=== PATIENT | male | born 1940 | race African-American/Black ===

== ENCOUNTER 2017-02-05 17:43 | Inpatient (IN) | payer MEDICARE, BC ==
[~2017-02-05] VITALS: Ht 188 cm; Wt 153.2 kg
[~2017-02-05 17:43] MED LIST: ASCO250T2 PO; ATOR20TA PO; BACL-19 PO; FAMO20TA7 PO; FURO-92 PO; FURO20TA3 PO; GABA300C10 PO; HUM100VI SQ; LISI5TAB7 PO; METO25TA35 PO; MULT-412 PO; OMEG1CAP23 PO; OMEP-110 PO; OXYC-307 PO; POTA20TA89 PO; PRAM0.125 PO; PREG150C PO; SULF1TAB24 PO; TAMS0.4C2 PO; WARF6TAB PO; WARF6TAB7 PO; ZINC100T PO
[2017-02-05] MEDS ORDERED: INSU100C5 SQ-INSULIN (17:59)
[2017-02-05] MEDS ORDERED: ATOR-2 PO (17:59)
[2017-02-05 19:10] LABS: HEMATOCRIT 42.7 % (39.2-51.8); HEMOGLOBIN 13.7 g/dL (13.7-18.0); WHITE BLOOD COUNT 7.4 x10^3/uL (3.4-10)
[2017-02-05 19:18] LABS: ASPARTATE AMINO TRANSFERASE 13 U/L (15-37); BLOOD UREA NITROGEN 18 mg/dL (7-18)
[2017-02-05 19:24] LABS: IS PT STATUS REG ER OR PRE ER? YES
[2017-02-05] MEDS ORDERED: DEXTROSE 50%, 50ML SYRINGE IVPush PRN (21:30)
[2017-02-05] MEDS ORDERED: ONDANSETRON 2MG/ML, 2ML IVPush PRN (21:30)
[2017-02-05] MEDS ORDERED: POLYETHYLENE GLYCOL 17 GM PACKET PO PRN (21:30)
[2017-02-05] MEDS ORDERED: TRAZODONE 50MG TABLET PO PRN (21:30)
[2017-02-05] MEDS ORDERED: DOCUSATE 100 MG CAPSULE PO PRN (21:30)
[2017-02-05] MEDS ORDERED: GLUCAGON 1 MG IM PRN (21:30)
[2017-02-05] MEDS ORDERED: hydrALAzine 20 MG/ML, 1ML IVPush PRN (21:30)
[2017-02-05] MEDS ORDERED: BISACODYL 10 MG SUPP PR PRN (21:30)
[2017-02-05] MEDS ORDERED: DEXTROSE 4 GM TAB.CHEW PO PRN (21:30)
[2017-02-05] MEDS ORDERED: OXYcodone/APAP 10/325MG TABLET PO PRN (22:00)
[2017-02-05] MEDS: AMPICILLIN/SULBACTAM 3 GM in SODIUM CHLORIDE 0.9% 100 ML IV SCH (22:43)
[2017-02-06] MEDS: AMPICILLIN/SULBACTAM 3 GM in SODIUM CHLORIDE 0.9% 100 ML IV SCH ×3 (03:30→15:30)
[2017-02-06 05:54] LABS: HEMATOCRIT 40.8 % (39.2-51.8)
[2017-02-06 06:06] LABS: BLOOD UREA NITROGEN 17 mg/dL (7-18)
[2017-02-06] MEDS ORDERED: INSULIN ASPART 70/30 100U/ML, PEN SQ-INSULIN SCH (07:00)
[2017-02-06] MEDS: INSULIN ASPART 100 UNITS/ML, PEN SQ-INSULIN SCH ×4 (07:00→21:00)
[2017-02-06] MEDS ORDERED: GADOBUTROL 10 MMOL/10 ML PFS ONE (07:35)
[2017-02-06] MEDS: INSULIN ASPART 70/30 100U/ML, PEN SQ-INSULIN SCH ×4 (08:39→21:00)
[2017-02-06] MEDS: GABAPENTIN 300 MG CAPSULE PO SCH ×3 (10:00→21:27)
[2017-02-06] MEDS: MULTIVITAMIN 1 TABLET PO SCH (10:00)
[2017-02-06] MEDS: PREGABALIN 150 MG CAPSULE PO SCH ×3 (10:00→21:27)
[2017-02-06] MEDS: METOPROLOL TARTRATE 25 MG TABLET PO SCH (10:01)
[2017-02-06] MEDS: FUROSEMIDE 40 MG TABLET PO SCH (10:01)
[2017-02-06] MEDS: POTASSIUM CHLORIDE 20 MEQ TAB.ER.PRT PO SCH (10:01)
[2017-02-06] MEDS: BACLOFEN 10 MG TABLET PO SCH ×3 (10:01→21:27)
[2017-02-06] MEDS: OMEPRAZOLE 20 MG CAPSULE.DR PO SCH (10:01)
[2017-02-06] MEDS: OMEGA-3/FISH OIL CAPSULE PO SCH (10:02)
[2017-02-06] MEDS: PRAMIPEXOLE 0.125MG TABLET PO SCH ×3 (10:02→21:27)
[2017-02-06] MEDS: SODIUM CHLORIDE FLUSH 10ML SYR IVF SCH ×2 (10:03→21:57)
[2017-02-06] MEDS ORDERED: TAMSULOSIN 0.4 MG CAP.ER.24H ONE (10:07)
[2017-02-06] MEDS: TAMSULOSIN 0.4 MG CAP.ER.24H PO SCH (10:09)
[2017-02-06] MEDS ORDERED: INSULIN REGULAR 100 UNITS/ML, 3ML VIAL ONE ×2 (11:28→16:45)
[2017-02-06 17:30] VITALS: BP 109/67
[2017-02-06] MEDS ORDERED: WARFARIN 3 MG TABLET PO-COUM ONE (18:00)
[2017-02-06] MEDS ORDERED: VANCOMYCIN PER PHARMACY MC PRN (19:30)
[2017-02-06 19:58] VITALS: BP 121/69
[2017-02-06] MEDS ORDERED: PHARMACOKINETIC MONITORING MC PRN (20:00)
[2017-02-06] MEDS ORDERED: VANCOMYCIN 2,000 MG in SODIUM CHLORIDE 0.9% 500 ML IV SCH (21:00)
[2017-02-06] MEDS: PIPERACILLIN/TAZO/PMX 3.375GM 50 ML IV SCH (21:10)
[2017-02-06] MEDS: ATORVASTATIN 80 MG TABLET PO SCH (21:27)
[2017-02-07] MEDS: PIPERACILLIN/TAZO/PMX 3.375GM 50 ML IV SCH ×3 (02:00→15:32)
[2017-02-07] MEDS: INSULIN ASPART 100 UNITS/ML, PEN SQ-INSULIN SCH ×4 (07:00→20:23)
[2017-02-07 07:50] VITALS: BP 136/68
[2017-02-07 08:17] LABS: BLOOD UREA NITROGEN 15 mg/dL (7-18)
[2017-02-07 08:22] LABS: HEMATOCRIT 39.7 % (39.2-51.8); HEMOGLOBIN 12.6 g/dL (13.7-18.0); WHITE BLOOD COUNT 6.9 x10^3/uL (3.4-10)
[2017-02-07] MEDS: SODIUM CHLORIDE FLUSH 10ML SYR IVF SCH ×2 (09:35→20:39)
[2017-02-07] MEDS: POTASSIUM CHLORIDE 20 MEQ TAB.ER.PRT PO SCH (09:39)
[2017-02-07] MEDS: TAMSULOSIN 0.4 MG CAP.ER.24H PO SCH (09:39)
[2017-02-07] MEDS: OMEGA-3/FISH OIL CAPSULE PO SCH (09:39)
[2017-02-07] MEDS: PREGABALIN 150 MG CAPSULE PO SCH ×3 (09:42→20:24)
[2017-02-07] MEDS: METOPROLOL TARTRATE 25 MG TABLET PO SCH (09:42)
[2017-02-07] MEDS: GABAPENTIN 300 MG CAPSULE PO SCH ×3 (09:42→20:24)
[2017-02-07] MEDS: PRAMIPEXOLE 0.125MG TABLET PO SCH ×3 (09:42→20:24)
[2017-02-07] MEDS: BACLOFEN 10 MG TABLET PO SCH ×3 (09:42→20:24)
[2017-02-07] MEDS: MULTIVITAMIN 1 TABLET PO SCH (09:43)
[2017-02-07] MEDS: OMEPRAZOLE 20 MG CAPSULE.DR PO SCH (09:43)
[2017-02-07] MEDS: INSULIN ASPART 70/30 100U/ML, PEN SQ-INSULIN SCH ×4 (09:44→20:24)
[2017-02-07] MEDS: FUROSEMIDE 40 MG TABLET PO SCH (09:52)
[2017-02-07 15:39] VITALS: BP 102/62
[2017-02-07] MEDS ORDERED: WARFARIN 2 MG TABLET PO-COUM ONE (18:00)
[2017-02-07 19:20] VITALS: BP 111/67
[2017-02-07] MEDS: CEFTAROLINE 600 MG in SODIUM CHLORIDE 0.9% 100 ML IV SCH (20:22)
[2017-02-07] MEDS: ATORVASTATIN 80 MG TABLET PO SCH (20:24)
[2017-02-08 00:52] VITALS: BP 150/80
[2017-02-08 05:32] LABS: HEMATOCRIT 37.9 % (39.2-51.8); HEMOGLOBIN 12.2 g/dL (13.7-18.0); WHITE BLOOD COUNT 6.3 x10^3/uL (3.4-10)
[2017-02-08 05:41] LABS: ASPARTATE AMINO TRANSFERASE 20 U/L (15-37); BLOOD UREA NITROGEN 14 mg/dL (7-18)
[2017-02-08] MEDS: ACETAMINOPHEN 325 MG TABLET PO PRN (05:41)
[2017-02-08 05:45] LABS: TOTAL IRON BINDING CAPACITY 326 mcg/dL (250-450)
[2017-02-08] MEDS: CEFTAROLINE 600 MG in SODIUM CHLORIDE 0.9% 100 ML IV SCH ×2 (06:22→18:13)
[2017-02-08] MEDS: INSULIN ASPART 100 UNITS/ML, PEN SQ-INSULIN SCH ×4 (07:00→20:35)
[2017-02-08 07:28] VITALS: BP 144/75
[2017-02-08] MEDS: INSULIN ASPART 70/30 100U/ML, PEN SQ-INSULIN SCH ×4 (07:38→20:34)
[2017-02-08] MEDS: SODIUM CHLORIDE FLUSH 10ML SYR IVF SCH ×2 (07:41→20:33)
[2017-02-08] MEDS: MULTIVITAMIN 1 TABLET PO SCH (07:42)
[2017-02-08] MEDS: TAMSULOSIN 0.4 MG CAP.ER.24H PO SCH (07:43)
[2017-02-08] MEDS: OMEPRAZOLE 20 MG CAPSULE.DR PO SCH (07:43)
[2017-02-08] MEDS: GABAPENTIN 300 MG CAPSULE PO SCH ×3 (07:43→20:33)
[2017-02-08] MEDS: BACLOFEN 10 MG TABLET PO SCH ×3 (07:44→20:33)
[2017-02-08] MEDS: FUROSEMIDE 40 MG TABLET PO SCH (07:44)
[2017-02-08] MEDS: PRAMIPEXOLE 0.125MG TABLET PO SCH ×3 (07:45→20:33)
[2017-02-08] MEDS: PREGABALIN 150 MG CAPSULE PO SCH ×3 (07:45→20:33)
[2017-02-08] MEDS: METOPROLOL TARTRATE 25 MG TABLET PO SCH (07:45)
[2017-02-08] MEDS: POTASSIUM CHLORIDE 20 MEQ TAB.ER.PRT PO SCH (07:46)
[2017-02-08] MEDS: OMEGA-3/FISH OIL CAPSULE PO SCH (07:47)
[2017-02-08 12:44] VITALS: BP 147/84
[2017-02-08] MEDS ORDERED: WARFARIN 10 MG TABLET PO-COUM ONE (18:00)
[2017-02-08 19:41] VITALS: BP 170/76
[2017-02-08] MEDS: ATORVASTATIN 80 MG TABLET PO SCH (20:33)
[2017-02-09 03:37] VITALS: BP 157/80
[2017-02-09] MEDS: CEFTAROLINE 600 MG in SODIUM CHLORIDE 0.9% 100 ML IV SCH ×2 (06:05→18:09)
[2017-02-09] MEDS: INSULIN ASPART 100 UNITS/ML, PEN SQ-INSULIN SCH ×4 (07:00→21:20)
[2017-02-09 08:00] VITALS: BP 193/84
[2017-02-09] MEDS: INSULIN ASPART 70/30 100U/ML, PEN SQ-INSULIN SCH ×4 (08:20→21:19)
[2017-02-09] MEDS: POTASSIUM CHLORIDE 20 MEQ TAB.ER.PRT PO SCH (08:22)
[2017-02-09] MEDS: SODIUM CHLORIDE FLUSH 10ML SYR IVF SCH ×2 (08:22→21:21)
[2017-02-09] MEDS: MULTIVITAMIN 1 TABLET PO SCH (08:22)
[2017-02-09] MEDS: OMEGA-3/FISH OIL CAPSULE PO SCH (08:22)
[2017-02-09] MEDS: FUROSEMIDE 40 MG TABLET PO SCH (08:23)
[2017-02-09] MEDS: TAMSULOSIN 0.4 MG CAP.ER.24H PO SCH (08:23)
[2017-02-09] MEDS: OMEPRAZOLE 20 MG CAPSULE.DR PO SCH (08:23)
[2017-02-09] MEDS: METOPROLOL TARTRATE 25 MG TABLET PO SCH (08:24)
[2017-02-09] MEDS: BACLOFEN 10 MG TABLET PO SCH ×3 (08:24→21:19)
[2017-02-09] MEDS: PRAMIPEXOLE 0.125MG TABLET PO SCH ×3 (08:25→21:19)
[2017-02-09] MEDS: PREGABALIN 150 MG CAPSULE PO SCH ×3 (08:25→21:19)
[2017-02-09] MEDS: GABAPENTIN 300 MG CAPSULE PO SCH ×3 (08:25→21:19)
[2017-02-09 16:57] VITALS: BP 178/92
[2017-02-09] MEDS ORDERED: WARFARIN 3 MG TABLET PO-COUM ONE (18:00)
[2017-02-09 19:27] VITALS: BP 179/72
[2017-02-09] MEDS ORDERED: LABETALOL 5MG/ML, 20ML IVPush PRN (19:30)
[2017-02-09] MEDS: ATORVASTATIN 80 MG TABLET PO SCH (21:19)
[2017-02-10 02:45] VITALS: BP 179/80
[2017-02-10 05:05] LABS: HEMATOCRIT 40.6 % (39.2-51.8); HEMOGLOBIN 12.8 g/dL (13.7-18.0); WHITE BLOOD COUNT 6.7 x10^3/uL (3.4-10)
[2017-02-10 05:27] LABS: ASPARTATE AMINO TRANSFERASE 19 U/L (15-37); BLOOD UREA NITROGEN 11 mg/dL (7-18)
[2017-02-10] MEDS: CEFTAROLINE 600 MG in SODIUM CHLORIDE 0.9% 100 ML IV SCH (05:54)
[2017-02-10] MEDS: INSULIN ASPART 100 UNITS/ML, PEN SQ-INSULIN SCH ×4 (07:00→20:36)
[2017-02-10 07:41] VITALS: BP 169/83
[2017-02-10] MEDS: OMEGA-3/FISH OIL CAPSULE PO SCH (07:46)
[2017-02-10] MEDS: SODIUM CHLORIDE FLUSH 10ML SYR IVF SCH ×2 (07:46→20:38)
[2017-02-10] MEDS: MULTIVITAMIN 1 TABLET PO SCH (07:46)
[2017-02-10] MEDS: METOPROLOL TARTRATE 25 MG TABLET PO SCH (07:47)
[2017-02-10] MEDS: BACLOFEN 10 MG TABLET PO SCH ×3 (07:47→20:36)
[2017-02-10] MEDS: GABAPENTIN 300 MG CAPSULE PO SCH ×3 (07:47→20:36)
[2017-02-10] MEDS: OMEPRAZOLE 20 MG CAPSULE.DR PO SCH (07:47)
[2017-02-10] MEDS: PRAMIPEXOLE 0.125MG TABLET PO SCH ×3 (07:47→20:35)
[2017-02-10] MEDS: TAMSULOSIN 0.4 MG CAP.ER.24H PO SCH (07:48)
[2017-02-10] MEDS: FUROSEMIDE 40 MG TABLET PO SCH (07:48)
[2017-02-10] MEDS: PREGABALIN 150 MG CAPSULE PO SCH ×3 (07:48→20:36)
[2017-02-10] MEDS: POTASSIUM CHLORIDE 20 MEQ TAB.ER.PRT PO SCH (07:49)
[2017-02-10] MEDS: INSULIN ASPART 70/30 100U/ML, PEN SQ-INSULIN SCH ×4 (07:49→20:35)
[2017-02-10 13:00] VITALS: BP 124/71
[2017-02-10] MEDS: AMPICILLIN/SULBACTAM 3 GM in SODIUM CHLORIDE 0.9% 100 ML IV SCH ×2 (16:27→22:42)
[2017-02-10] MEDS: METOPROLOL TARTRATE 50 MG TABLET PO SCH (17:48)
[2017-02-10] MEDS ORDERED: WARFARIN 3 MG TABLET PO-COUM ONE (18:00)
[2017-02-10 19:13] VITALS: BP 136/70
[2017-02-10] MEDS: ATORVASTATIN 80 MG TABLET PO SCH (20:36)
[2017-02-10] MEDS: ACETAMINOPHEN 325 MG TABLET PO PRN (23:09)
[2017-02-11 00:49] VITALS: BP 119/68
[2017-02-11] MEDS: AMPICILLIN/SULBACTAM 3 GM in SODIUM CHLORIDE 0.9% 100 ML IV SCH ×4 (04:41→22:52)
[2017-02-11 05:29] LABS: BLOOD UREA NITROGEN 14 mg/dL (7-18)
[2017-02-11] MEDS: METOPROLOL TARTRATE 50 MG TABLET PO SCH ×2 (05:57→17:55)
[2017-02-11] MEDS: ACETAMINOPHEN 325 MG TABLET PO PRN ×2 (06:27→12:07)
[2017-02-11] MEDS: INSULIN ASPART 70/30 100U/ML, PEN SQ-INSULIN SCH ×2 (07:00→11:00)
[2017-02-11] MEDS: INSULIN ASPART 100 UNITS/ML, PEN SQ-INSULIN SCH ×3 (07:00→16:00)
[2017-02-11] MEDS: SODIUM CHLORIDE FLUSH 10ML SYR IVF SCH ×2 (08:18→22:09)
[2017-02-11] MEDS: OMEGA-3/FISH OIL CAPSULE PO SCH (08:22)
[2017-02-11] MEDS: BACLOFEN 10 MG TABLET PO SCH ×3 (08:23→22:08)
[2017-02-11] MEDS: MULTIVITAMIN 1 TABLET PO SCH (08:23)
[2017-02-11] MEDS: PREGABALIN 150 MG CAPSULE PO SCH ×3 (08:23→22:08)
[2017-02-11] MEDS: POTASSIUM CHLORIDE 20 MEQ TAB.ER.PRT PO SCH (08:23)
[2017-02-11] MEDS: PRAMIPEXOLE 0.125MG TABLET PO SCH ×3 (08:23→22:08)
[2017-02-11] MEDS: GABAPENTIN 300 MG CAPSULE PO SCH ×3 (08:23→22:08)
[2017-02-11] MEDS: OMEPRAZOLE 20 MG CAPSULE.DR PO SCH (08:23)
[2017-02-11] MEDS: FUROSEMIDE 40 MG TABLET PO SCH (08:23)
[2017-02-11] MEDS: TAMSULOSIN 0.4 MG CAP.ER.24H PO SCH (08:23)
[2017-02-11 08:26] VITALS: BP 149/68
[2017-02-11] MEDS ORDERED: INSULIN ASPART 70/30 100U/ML, PEN SQ-INSULIN ONE ×2 (08:30→12:00)
[2017-02-11 15:45] VITALS: BP 132/56
[2017-02-11] MEDS ORDERED: POLYETHYLENE GLYCOL 17 GM PACKET PO PRN (16:30)
[2017-02-11] MEDS ORDERED: DEXTROSE 4 GM TAB.CHEW PO PRN (16:30)
[2017-02-11] MEDS ORDERED: GLUCAGON 1 MG IM PRN (16:30)
[2017-02-11] MEDS ORDERED: hydrALAzine 20 MG/ML, 1ML IVPush PRN (16:30)
[2017-02-11] MEDS ORDERED: BISACODYL 10 MG SUPP PR PRN (16:30)
[2017-02-11] MEDS ORDERED: TRAZODONE 50MG TABLET PO PRN (16:30)
[2017-02-11] MEDS ORDERED: DEXTROSE 50%, 50ML SYRINGE IVPush PRN (16:30)
[2017-02-11] MEDS ORDERED: LABETALOL 5MG/ML, 20ML IVPush PRN (16:30)
[2017-02-11] MEDS ORDERED: DOCUSATE 100 MG CAPSULE PO PRN (16:30)
[2017-02-11] MEDS ORDERED: ONDANSETRON 2MG/ML, 2ML IVPush PRN (16:30)
[2017-02-11] MEDS ORDERED: ACETAMINOPHEN 325 MG TABLET PO PRN (16:30)
[2017-02-11] MEDS: FERROUS SULFATE 325 MG TABLET PO SCH (16:58)
[2017-02-11] MEDS: INSULIN DETEMIR 100 UNITS/ML, PEN SQ-INSULIN SCH ×2 (17:33→17:43)
[2017-02-11 17:57] VITALS: BP 133/64
[2017-02-11] MEDS ORDERED: WARFARIN 3 MG TABLET PO-COUM ONE (18:00)
[2017-02-11 19:57] VITALS: BP 134/75
[2017-02-11] MEDS: ATORVASTATIN 80 MG TABLET PO SCH (22:08)
[2017-02-11] MEDS ORDERED: METOCLOPRAMIDE 5 MG/ML, 2ML IVPush ONE (22:30)
[2017-02-11] MEDS ORDERED: DIPHENHYDRAMINE 50 MG/ML, 1ML IVPush ONE (22:30)
[2017-02-12] VITALS (7 sets, daily range): BP systolic 130–179; BP diastolic 69–76
[2017-02-12] MEDS: OXYcodone/APAP 10/325MG TABLET PO PRN ×6 (02:18→23:19)
[2017-02-12] MEDS: AMPICILLIN/SULBACTAM 3 GM in SODIUM CHLORIDE 0.9% 100 ML IV SCH ×4 (04:24→22:59)
[2017-02-12] MEDS: METOPROLOL TARTRATE 50 MG TABLET PO SCH ×2 (06:33→17:36)
[2017-02-12] MEDS: FUROSEMIDE 40 MG TABLET PO SCH (10:22)
[2017-02-12] MEDS: FERROUS SULFATE 325 MG TABLET PO SCH ×2 (10:22→17:35)
[2017-02-12] MEDS: BACLOFEN 10 MG TABLET PO SCH ×3 (10:22→20:04)
[2017-02-12] MEDS: POTASSIUM CHLORIDE 20 MEQ TAB.ER.PRT PO SCH (10:22)
[2017-02-12] MEDS: OMEGA-3/FISH OIL CAPSULE PO SCH (10:23)
[2017-02-12] MEDS: MULTIVITAMIN 1 TABLET PO SCH (10:23)
[2017-02-12] MEDS: PREGABALIN 150 MG CAPSULE PO SCH ×3 (10:23→20:03)
[2017-02-12] MEDS: TAMSULOSIN 0.4 MG CAP.ER.24H PO SCH (10:23)
[2017-02-12] MEDS: GABAPENTIN 300 MG CAPSULE PO SCH ×3 (10:23→20:03)
[2017-02-12] MEDS: PRAMIPEXOLE 0.125MG TABLET PO SCH ×3 (10:23→20:03)
[2017-02-12] MEDS: OMEPRAZOLE 20 MG CAPSULE.DR PO SCH (10:38)
[2017-02-12] MEDS: SODIUM CHLORIDE FLUSH 10ML SYR IVF SCH ×2 (10:38→20:05)
[2017-02-12] MEDS ORDERED: INSULIN ASPART 100 UNITS/ML, PEN SQ-INSULIN SCH (12:30)
[2017-02-12] MEDS ORDERED: INSULIN ASPART 100 UNITS/ML, PEN SQ-INSULIN ONE (17:30)
[2017-02-12] MEDS: INSULIN DETEMIR 100 UNITS/ML, PEN SQ-INSULIN SCH (17:38)
[2017-02-12] MEDS ORDERED: WARFARIN 5 MG TABLET PO-COUM SCH (18:00)
[2017-02-12] MEDS: ATORVASTATIN 80 MG TABLET PO SCH (20:03)
[2017-02-13] MEDS: AMPICILLIN/SULBACTAM 3 GM in SODIUM CHLORIDE 0.9% 100 ML IV SCH ×4 (04:55→22:21)
[2017-02-13 04:56] VITALS: BP 167/73
[2017-02-13] MEDS: METOPROLOL TARTRATE 50 MG TABLET PO SCH ×2 (06:34→18:00)
[2017-02-13 07:24] VITALS: BP 156/76
[2017-02-13] MEDS: OXYcodone/APAP 10/325MG TABLET PO PRN ×2 (08:15→17:59)
[2017-02-13] MEDS: FUROSEMIDE 40 MG TABLET PO SCH (08:15)
[2017-02-13] MEDS: OMEGA-3/FISH OIL CAPSULE PO SCH (08:15)
[2017-02-13] MEDS: PRAMIPEXOLE 0.125MG TABLET PO SCH ×3 (08:16→21:04)
[2017-02-13] MEDS: OMEPRAZOLE 20 MG CAPSULE.DR PO SCH (08:16)
[2017-02-13] MEDS: PREGABALIN 150 MG CAPSULE PO SCH ×3 (08:16→21:05)
[2017-02-13] MEDS: GABAPENTIN 300 MG CAPSULE PO SCH ×3 (08:16→21:04)
[2017-02-13] MEDS: BACLOFEN 10 MG TABLET PO SCH ×3 (08:16→21:04)
[2017-02-13] MEDS: FERROUS SULFATE 325 MG TABLET PO SCH ×2 (08:16→16:20)
[2017-02-13] MEDS: MULTIVITAMIN 1 TABLET PO SCH (08:16)
[2017-02-13] MEDS: POTASSIUM CHLORIDE 20 MEQ TAB.ER.PRT PO SCH (08:17)
[2017-02-13] MEDS: TAMSULOSIN 0.4 MG CAP.ER.24H PO SCH (08:17)
[2017-02-13] MEDS: SODIUM CHLORIDE FLUSH 10ML SYR IVF SCH ×2 (09:00→21:04)
[2017-02-13] MEDS ORDERED: HOLD COUMADIN MC PRN (11:00)
[2017-02-13 14:01] VITALS: BP 159/74
[2017-02-13 20:10] VITALS: BP 154/69
[2017-02-13] MEDS: ATORVASTATIN 80 MG TABLET PO SCH (21:05)
[2017-02-13] MEDS: INSULIN DETEMIR 100 UNITS/ML, PEN SQ-INSULIN SCH (21:15)
[2017-02-14 01:50] VITALS: BP 154/73
[2017-02-14] MEDS: AMPICILLIN/SULBACTAM 3 GM in SODIUM CHLORIDE 0.9% 100 ML IV SCH ×4 (03:49→23:26)
[2017-02-14] MEDS: OXYcodone/APAP 10/325MG TABLET PO PRN ×3 (03:50→16:59)
[2017-02-14] MEDS: METOPROLOL TARTRATE 50 MG TABLET PO SCH ×2 (06:15→16:56)
[2017-02-14 08:00] VITALS: BP 165/70
[2017-02-14] MEDS ORDERED: HOLD COUMADIN MC PRN (08:00)
[2017-02-14] MEDS: OMEGA-3/FISH OIL CAPSULE PO SCH (08:17)
[2017-02-14] MEDS: PREGABALIN 150 MG CAPSULE PO SCH ×3 (08:18→20:02)
[2017-02-14] MEDS: FUROSEMIDE 40 MG TABLET PO SCH (08:18)
[2017-02-14] MEDS: FERROUS SULFATE 325 MG TABLET PO SCH ×2 (08:18→16:56)
[2017-02-14] MEDS: POTASSIUM CHLORIDE 20 MEQ TAB.ER.PRT PO SCH (08:18)
[2017-02-14] MEDS: GABAPENTIN 300 MG CAPSULE PO SCH ×3 (08:18→20:02)
[2017-02-14] MEDS: TAMSULOSIN 0.4 MG CAP.ER.24H PO SCH (08:18)
[2017-02-14] MEDS: PRAMIPEXOLE 0.125MG TABLET PO SCH ×3 (08:18→20:01)
[2017-02-14] MEDS: MULTIVITAMIN 1 TABLET PO SCH (08:19)
[2017-02-14] MEDS: OMEPRAZOLE 20 MG CAPSULE.DR PO SCH (08:19)
[2017-02-14] MEDS: SODIUM CHLORIDE FLUSH 10ML SYR IVF SCH ×2 (08:20→23:26)
[2017-02-14] MEDS: BACLOFEN 10 MG TABLET PO SCH ×3 (08:25→20:02)
[2017-02-14] MEDS: LISINOPRIL 20 MG TABLET PO SCH ×2 (09:39→20:02)
[2017-02-14 13:57] VITALS: BP 184/65
[2017-02-14] MEDS: INSULIN DETEMIR 100 UNITS/ML, PEN SQ-INSULIN SCH (18:12)
[2017-02-14] MEDS: ATORVASTATIN 80 MG TABLET PO SCH (20:02)
[2017-02-14 20:21] VITALS: BP 119/64
[2017-02-15 02:28] VITALS: BP 119/66
[2017-02-15] MEDS: AMPICILLIN/SULBACTAM 3 GM in SODIUM CHLORIDE 0.9% 100 ML IV SCH ×4 (05:18→22:38)
[2017-02-15] MEDS: METOPROLOL TARTRATE 50 MG TABLET PO SCH ×2 (05:18→17:29)
[2017-02-15] MEDS: OXYcodone/APAP 10/325MG TABLET PO PRN (05:28)
[2017-02-15 09:07] VITALS: BP_SYST 157; BP_SYST 95; BP_DIAS 57; BP_DIAS 68
[2017-02-15] MEDS: LISINOPRIL 20 MG TABLET PO SCH ×2 (09:55→21:41)
[2017-02-15] MEDS: PREGABALIN 150 MG CAPSULE PO SCH ×3 (09:55→21:19)
[2017-02-15] MEDS: GABAPENTIN 300 MG CAPSULE PO SCH ×3 (09:55→21:19)
[2017-02-15] MEDS: MULTIVITAMIN 1 TABLET PO SCH (09:55)
[2017-02-15] MEDS: FUROSEMIDE 40 MG TABLET PO SCH (09:55)
[2017-02-15] MEDS: BACLOFEN 10 MG TABLET PO SCH ×3 (09:55→21:18)
[2017-02-15] MEDS: POTASSIUM CHLORIDE 20 MEQ TAB.ER.PRT PO SCH (09:55)
[2017-02-15] MEDS: OMEPRAZOLE 20 MG CAPSULE.DR PO SCH (09:55)
[2017-02-15] MEDS: TAMSULOSIN 0.4 MG CAP.ER.24H PO SCH (09:56)
[2017-02-15] MEDS: SODIUM CHLORIDE FLUSH 10ML SYR IVF SCH ×2 (09:56→21:18)
[2017-02-15] MEDS: OMEGA-3/FISH OIL CAPSULE PO SCH (09:56)
[2017-02-15] MEDS: PRAMIPEXOLE 0.125MG TABLET PO SCH ×3 (09:56→21:18)
[2017-02-15] MEDS: FERROUS SULFATE 325 MG TABLET PO SCH ×2 (10:05→17:00)
[2017-02-15 15:21] VITALS: BP 129/69
[2017-02-15 20:20] VITALS: BP 118/68
[2017-02-15] MEDS: ATORVASTATIN 80 MG TABLET PO SCH (21:18)
[2017-02-15] MEDS: INSULIN DETEMIR 100 UNITS/ML, PEN SQ-INSULIN SCH (21:41)
[2017-02-16] MEDS: OXYcodone/APAP 10/325MG TABLET PO PRN (01:35)
[2017-02-16 02:26] VITALS: BP 108/62
[2017-02-16] MEDS: AMPICILLIN/SULBACTAM 3 GM in SODIUM CHLORIDE 0.9% 100 ML IV SCH ×4 (05:02→21:56)
[2017-02-16] MEDS: METOPROLOL TARTRATE 50 MG TABLET PO SCH ×2 (05:03→18:17)
[2017-02-16 08:00] VITALS: BP 123/61
[2017-02-16] MEDS: OMEPRAZOLE 20 MG CAPSULE.DR PO SCH (10:31)
[2017-02-16] MEDS: OMEGA-3/FISH OIL CAPSULE PO SCH (10:31)
[2017-02-16] MEDS: LISINOPRIL 20 MG TABLET PO SCH ×2 (10:31→20:30)
[2017-02-16] MEDS: MULTIVITAMIN 1 TABLET PO SCH (10:32)
[2017-02-16] MEDS: BACLOFEN 10 MG TABLET PO SCH ×3 (10:32→20:31)
[2017-02-16] MEDS: PREGABALIN 150 MG CAPSULE PO SCH ×3 (10:32→20:31)
[2017-02-16] MEDS: FUROSEMIDE 40 MG TABLET PO SCH (10:32)
[2017-02-16] MEDS: PRAMIPEXOLE 0.125MG TABLET PO SCH ×3 (10:32→20:30)
[2017-02-16] MEDS: FERROUS SULFATE 325 MG TABLET PO SCH ×2 (10:32→16:20)
[2017-02-16] MEDS: GABAPENTIN 300 MG CAPSULE PO SCH ×3 (10:32→20:31)
[2017-02-16] MEDS: SODIUM CHLORIDE FLUSH 10ML SYR IVF SCH ×2 (10:32→20:31)
[2017-02-16] MEDS: POTASSIUM CHLORIDE 20 MEQ TAB.ER.PRT PO SCH (10:32)
[2017-02-16] MEDS: TAMSULOSIN 0.4 MG CAP.ER.24H PO SCH (10:32)
[2017-02-16 14:00] VITALS: BP 133/68
[2017-02-16 19:55] VITALS: BP 178/71
[2017-02-16] MEDS: ATORVASTATIN 80 MG TABLET PO SCH (20:31)
[2017-02-16] MEDS: INSULIN DETEMIR 100 UNITS/ML, PEN SQ-INSULIN SCH (21:00)
[2017-02-17] MEDS: OXYcodone/APAP 10/325MG TABLET PO PRN ×2 (01:10→15:20)
[2017-02-17 01:36] VITALS: BP 147/69
[2017-02-17 02:10] LABS: HEMATOCRIT 38.8 % (39.2-51.8); HEMOGLOBIN 12.7 g/dL (13.7-18.0); WHITE BLOOD COUNT 7.8 x10^3/uL (3.4-10)
[2017-02-17 02:21] LABS: BLOOD UREA NITROGEN 13 mg/dL (7-18)
[2017-02-17] MEDS: AMPICILLIN/SULBACTAM 3 GM in SODIUM CHLORIDE 0.9% 100 ML IV SCH ×4 (05:23→21:52)
[2017-02-17] MEDS: METOPROLOL TARTRATE 50 MG TABLET PO SCH ×2 (05:23→17:39)
[2017-02-17 07:28] VITALS: BP 147/68
[2017-02-17] MEDS: FERROUS SULFATE 325 MG TABLET PO SCH ×2 (08:50→17:38)
[2017-02-17] MEDS: SODIUM CHLORIDE FLUSH 10ML SYR IVF SCH ×2 (08:50→21:29)
[2017-02-17] MEDS: POTASSIUM CHLORIDE 20 MEQ TAB.ER.PRT PO SCH (08:51)
[2017-02-17] MEDS: PRAMIPEXOLE 0.125MG TABLET PO SCH ×3 (08:51→21:27)
[2017-02-17] MEDS: BACLOFEN 10 MG TABLET PO SCH ×3 (08:51→21:27)
[2017-02-17] MEDS: MULTIVITAMIN 1 TABLET PO SCH (08:51)
[2017-02-17] MEDS: FUROSEMIDE 40 MG TABLET PO SCH (08:51)
[2017-02-17] MEDS: GABAPENTIN 300 MG CAPSULE PO SCH ×3 (08:51→21:27)
[2017-02-17] MEDS: TAMSULOSIN 0.4 MG CAP.ER.24H PO SCH (08:51)
[2017-02-17] MEDS: PREGABALIN 150 MG CAPSULE PO SCH ×3 (08:51→21:29)
[2017-02-17] MEDS: OMEGA-3/FISH OIL CAPSULE PO SCH (08:51)
[2017-02-17] MEDS: LISINOPRIL 20 MG TABLET PO SCH ×2 (08:52→21:28)
[2017-02-17] MEDS: OMEPRAZOLE 20 MG CAPSULE.DR PO SCH (08:52)
[2017-02-17 15:46] VITALS: BP 150/68
[2017-02-17 21:15] VITALS: BP 154/72
[2017-02-17] MEDS: ATORVASTATIN 80 MG TABLET PO SCH (21:27)
[2017-02-17] MEDS: INSULIN DETEMIR 100 UNITS/ML, PEN SQ-INSULIN SCH (21:52)
[2017-02-18 02:40] VITALS: BP 135/68
[2017-02-18] MEDS: AMPICILLIN/SULBACTAM 3 GM in SODIUM CHLORIDE 0.9% 100 ML IV SCH ×4 (05:29→22:40)
[2017-02-18] MEDS: METOPROLOL TARTRATE 50 MG TABLET PO SCH ×2 (05:30→17:33)
[2017-02-18 06:53] VITALS: BP 153/73
[2017-02-18] MEDS: FERROUS SULFATE 325 MG TABLET PO SCH ×2 (09:44→17:33)
[2017-02-18] MEDS: SODIUM CHLORIDE FLUSH 10ML SYR IVF SCH ×2 (09:44→21:00)
[2017-02-18] MEDS: TAMSULOSIN 0.4 MG CAP.ER.24H PO SCH (09:45)
[2017-02-18] MEDS: PREGABALIN 150 MG CAPSULE PO SCH ×3 (09:45→21:24)
[2017-02-18] MEDS: MULTIVITAMIN 1 TABLET PO SCH (09:45)
[2017-02-18] MEDS: GABAPENTIN 300 MG CAPSULE PO SCH ×3 (09:45→21:25)
[2017-02-18] MEDS: FUROSEMIDE 40 MG TABLET PO SCH (09:45)
[2017-02-18] MEDS: POTASSIUM CHLORIDE 20 MEQ TAB.ER.PRT PO SCH (09:45)
[2017-02-18] MEDS: BACLOFEN 10 MG TABLET PO SCH ×3 (09:45→21:25)
[2017-02-18] MEDS: OMEPRAZOLE 20 MG CAPSULE.DR PO SCH (09:45)
[2017-02-18] MEDS: PRAMIPEXOLE 0.125MG TABLET PO SCH ×3 (09:45→21:25)
[2017-02-18] MEDS: OMEGA-3/FISH OIL CAPSULE PO SCH (09:45)
[2017-02-18] MEDS: LISINOPRIL 20 MG TABLET PO SCH ×2 (09:46→21:25)
[2017-02-18 15:36] VITALS: BP 153/74
[2017-02-18 18:40] VITALS: BP 145/74
[2017-02-18] MEDS: ATORVASTATIN 80 MG TABLET PO SCH (21:24)
[2017-02-18] MEDS: INSULIN DETEMIR 100 UNITS/ML, PEN SQ-INSULIN SCH (21:34)
[2017-02-19 01:34] VITALS: BP 156/76
[2017-02-19] MEDS: AMPICILLIN/SULBACTAM 3 GM in SODIUM CHLORIDE 0.9% 100 ML IV SCH ×4 (05:00→21:46)
[2017-02-19] MEDS: METOPROLOL TARTRATE 50 MG TABLET PO SCH ×2 (05:00→18:16)
[2017-02-19 05:46] LABS: ASPARTATE AMINO TRANSFERASE 16 U/L (15-37); BLOOD UREA NITROGEN 12 mg/dL (7-18)
[2017-02-19 06:04] LABS: WHITE BLOOD COUNT 7.4 x10^3/uL (3.4-10)
[2017-02-19 07:51] VITALS: BP 112/71
[2017-02-19 08:09] VITALS: BP 148/71
[2017-02-19] MEDS: FERROUS SULFATE 325 MG TABLET PO SCH ×2 (09:30→18:16)
[2017-02-19] MEDS: SODIUM CHLORIDE FLUSH 10ML SYR IVF SCH ×2 (09:30→20:44)
[2017-02-19] MEDS: TAMSULOSIN 0.4 MG CAP.ER.24H PO SCH (09:31)
[2017-02-19] MEDS: BACLOFEN 10 MG TABLET PO SCH ×3 (09:31→20:45)
[2017-02-19] MEDS: PRAMIPEXOLE 0.125MG TABLET PO SCH ×3 (09:31→20:44)
[2017-02-19] MEDS: LISINOPRIL 20 MG TABLET PO SCH ×2 (09:31→20:44)
[2017-02-19] MEDS: GABAPENTIN 300 MG CAPSULE PO SCH ×3 (09:31→20:45)
[2017-02-19] MEDS: POTASSIUM CHLORIDE 20 MEQ TAB.ER.PRT PO SCH (09:31)
[2017-02-19] MEDS: MULTIVITAMIN 1 TABLET PO SCH (09:31)
[2017-02-19] MEDS: FUROSEMIDE 40 MG TABLET PO SCH (09:31)
[2017-02-19] MEDS: OMEGA-3/FISH OIL CAPSULE PO SCH (09:31)
[2017-02-19] MEDS: PREGABALIN 150 MG CAPSULE PO SCH ×3 (09:31→20:45)
[2017-02-19] MEDS: OMEPRAZOLE 20 MG CAPSULE.DR PO SCH (10:36)
[2017-02-19] MEDS: OXYcodone/APAP 10/325MG TABLET PO PRN (13:18)
[2017-02-19 15:32] VITALS: BP 159/77
[2017-02-19] MEDS: ATORVASTATIN 80 MG TABLET PO SCH (20:45)
[2017-02-19] MEDS: INSULIN DETEMIR 100 UNITS/ML, PEN SQ-INSULIN SCH (20:53)
[2017-02-19 20:54] VITALS: BP 116/70
[2017-02-20] MEDS: AMPICILLIN/SULBACTAM 3 GM in SODIUM CHLORIDE 0.9% 100 ML IV SCH ×4 (03:46→22:47)
[2017-02-20 04:13] VITALS: BP 122/76
[2017-02-20] MEDS: METOPROLOL TARTRATE 50 MG TABLET PO SCH ×2 (05:43→17:24)
[2017-02-20 07:35] VITALS: BP 138/69
[2017-02-20] MEDS: SODIUM CHLORIDE FLUSH 10ML SYR IVF SCH ×2 (08:15→21:09)
[2017-02-20] MEDS: FERROUS SULFATE 325 MG TABLET PO SCH ×2 (08:15→17:24)
[2017-02-20] MEDS: BACLOFEN 10 MG TABLET PO SCH ×3 (08:16→21:10)
[2017-02-20] MEDS: POTASSIUM CHLORIDE 20 MEQ TAB.ER.PRT PO SCH (08:16)
[2017-02-20] MEDS: TAMSULOSIN 0.4 MG CAP.ER.24H PO SCH (08:16)
[2017-02-20] MEDS: OMEGA-3/FISH OIL CAPSULE PO SCH (08:16)
[2017-02-20] MEDS: FUROSEMIDE 40 MG TABLET PO SCH (08:16)
[2017-02-20] MEDS: PRAMIPEXOLE 0.125MG TABLET PO SCH ×3 (08:17→21:10)
[2017-02-20] MEDS: MULTIVITAMIN 1 TABLET PO SCH (08:17)
[2017-02-20] MEDS: PREGABALIN 150 MG CAPSULE PO SCH ×3 (08:17→21:10)
[2017-02-20] MEDS: GABAPENTIN 300 MG CAPSULE PO SCH ×3 (08:17→21:10)
[2017-02-20] MEDS: OMEPRAZOLE 20 MG CAPSULE.DR PO SCH (08:17)
[2017-02-20] MEDS: LISINOPRIL 20 MG TABLET PO SCH ×2 (08:18→21:11)
[2017-02-20] MEDS: OXYcodone/APAP 10/325MG TABLET PO PRN ×2 (08:30→21:44)
[2017-02-20] MEDS: ENOXAPARIN 150 MG/ML SQ SCH (12:30)
[2017-02-20 13:02] VITALS: BP 135/70
[2017-02-20 16:19] VITALS: BP 131/74
[2017-02-20 20:59] VITALS: BP 139/70
[2017-02-20] MEDS: INSULIN DETEMIR 100 UNITS/ML, PEN SQ-INSULIN SCH (21:10)
[2017-02-20] MEDS: ATORVASTATIN 80 MG TABLET PO SCH (21:10)
[2017-02-21] MEDS: ENOXAPARIN 150 MG/ML SQ SCH ×2 (00:21→12:28)
[2017-02-21 02:34] VITALS: BP 116/66
[2017-02-21] MEDS: METOPROLOL TARTRATE 50 MG TABLET PO SCH ×2 (05:09→17:53)
[2017-02-21] MEDS: AMPICILLIN/SULBACTAM 3 GM in SODIUM CHLORIDE 0.9% 100 ML IV SCH ×4 (05:09→23:30)
[2017-02-21] MEDS: OXYcodone/APAP 10/325MG TABLET PO PRN (05:22)
[2017-02-21 07:27] VITALS: BP 136/74
[2017-02-21] MEDS: GABAPENTIN 300 MG CAPSULE PO SCH ×3 (09:28→21:57)
[2017-02-21] MEDS: OMEPRAZOLE 20 MG CAPSULE.DR PO SCH (09:28)
[2017-02-21] MEDS: PREGABALIN 150 MG CAPSULE PO SCH ×3 (09:29→21:57)
[2017-02-21] MEDS: TAMSULOSIN 0.4 MG CAP.ER.24H PO SCH (09:29)
[2017-02-21] MEDS: BACLOFEN 10 MG TABLET PO SCH ×3 (09:29→21:58)
[2017-02-21] MEDS: PRAMIPEXOLE 0.125MG TABLET PO SCH ×3 (09:30→21:57)
[2017-02-21] MEDS: OMEGA-3/FISH OIL CAPSULE PO SCH (09:30)
[2017-02-21] MEDS: SODIUM CHLORIDE FLUSH 10ML SYR IVF SCH ×2 (09:30→21:00)
[2017-02-21] MEDS: FUROSEMIDE 40 MG TABLET PO SCH (09:30)
[2017-02-21] MEDS: MULTIVITAMIN 1 TABLET PO SCH (09:31)
[2017-02-21] MEDS: FERROUS SULFATE 325 MG TABLET PO SCH ×2 (09:31→16:16)
[2017-02-21] MEDS: POTASSIUM CHLORIDE 20 MEQ TAB.ER.PRT PO SCH (09:31)
[2017-02-21] MEDS: LISINOPRIL 20 MG TABLET PO SCH ×2 (09:32→21:57)
[2017-02-21 14:47] VITALS: BP 137/69
[2017-02-21 19:44] VITALS: BP 138/73
[2017-02-21] MEDS: ATORVASTATIN 80 MG TABLET PO SCH (21:57)
[2017-02-21] MEDS: INSULIN DETEMIR 100 UNITS/ML, PEN SQ-INSULIN SCH (21:58)
[2017-02-22 02:00] VITALS: BP 146/68
[2017-02-22] MEDS: METOPROLOL TARTRATE 50 MG TABLET PO SCH ×2 (05:13→17:35)
[2017-02-22] MEDS: AMPICILLIN/SULBACTAM 3 GM in SODIUM CHLORIDE 0.9% 100 ML IV SCH ×4 (05:14→23:40)
[2017-02-22 05:34] LABS: HEMATOCRIT 39.2 % (39.2-51.8); HEMOGLOBIN 12.7 g/dL (13.7-18.0); WHITE BLOOD COUNT 7.3 x10^3/uL (3.4-10)
[2017-02-22 05:39] LABS: BLOOD UREA NITROGEN 10 mg/dL (7-18)
[2017-02-22 06:38] VITALS: BP 158/72
[2017-02-22] MEDS ORDERED: FENTANYL PF 100 MCG/2ML ONE (07:05)
[2017-02-22] MEDS ORDERED: ONDANSETRON 2MG/ML, 2ML ONE (07:46)
[2017-02-22] MEDS ORDERED: METOCLOPRAMIDE 5 MG/ML, 2ML ONE (07:46)
[2017-02-22] MEDS ORDERED: SUCCINYLCHOLINE 20 MG/ML, 10ML ONE (07:46)
[2017-02-22] MEDS ORDERED: PROPOFOL 10 MG/ML, 20ML ONE (07:46)
[2017-02-22] MEDS ORDERED: ROCURONIUM 10 MG/ML ONE (07:46)
[2017-02-22] MEDS: FERROUS SULFATE 325 MG TABLET PO SCH ×2 (08:00→16:23)
[2017-02-22] MEDS ORDERED: hydrALAzine 20 MG/ML, 1ML IV PRN (08:30)
[2017-02-22] MEDS ORDERED: FENTANYL PF 100 MCG/2ML IV PRN (08:30)
[2017-02-22] MEDS ORDERED: OXYcodone 5 MG/5 ML ORAL.SOL UDC PO PRN (08:30)
[2017-02-22] MEDS ORDERED: PROMETHAZINE 25 MG/ML, 1ML IV PRN (08:30)
[2017-02-22] MEDS ORDERED: ONDANSETRON 2MG/ML, 2ML IVPush PRN (08:30)
[2017-02-22] MEDS ORDERED: morphine SULFATE 10 MG/ML, 1ML IV PRN (08:30)
[2017-02-22] MEDS ORDERED: LABETALOL 5MG/ML, 20ML ONE (08:42)
[2017-02-22] MEDS: LABETALOL 5MG/ML, 20ML IV PRN ×3 (08:44→09:01)
[2017-02-22] MEDS: OMEGA-3/FISH OIL CAPSULE PO SCH (09:00)
[2017-02-22] MEDS: GABAPENTIN 300 MG CAPSULE PO SCH ×3 (09:00→21:52)
[2017-02-22] MEDS: LISINOPRIL 20 MG TABLET PO SCH ×2 (09:00→21:00)
[2017-02-22] MEDS: PREGABALIN 150 MG CAPSULE PO SCH ×3 (09:00→21:52)
[2017-02-22] MEDS: SODIUM CHLORIDE FLUSH 10ML SYR IVF SCH ×2 (09:00→21:00)
[2017-02-22] MEDS: BACLOFEN 10 MG TABLET PO SCH ×3 (09:00→21:52)
[2017-02-22] MEDS: PRAMIPEXOLE 0.125MG TABLET PO SCH ×3 (09:00→21:52)
[2017-02-22] MEDS ORDERED: hydrALAzine 20 MG/ML, 1ML ONE (09:07)
[2017-02-22] MEDS: FUROSEMIDE 40 MG TABLET PO SCH (12:36)
[2017-02-22] MEDS: TAMSULOSIN 0.4 MG CAP.ER.24H PO SCH (12:36)
[2017-02-22] MEDS: MULTIVITAMIN 1 TABLET PO SCH (12:37)
[2017-02-22] MEDS: POTASSIUM CHLORIDE 20 MEQ TAB.ER.PRT PO SCH (12:37)
[2017-02-22] MEDS: OMEPRAZOLE 20 MG CAPSULE.DR PO SCH (12:38)
[2017-02-22 15:50] VITALS: BP 152/73
[2017-02-22] MEDS: WARFARIN 2 MG TABLET PO-COUM SCH (17:36)
[2017-02-22] MEDS: OXYcodone/APAP 10/325MG TABLET PO PRN ×2 (17:44→23:40)
[2017-02-22 20:36] VITALS: BP 132/67
[2017-02-22] MEDS: ATORVASTATIN 80 MG TABLET PO SCH (21:52)
[2017-02-22] MEDS: INSULIN DETEMIR 100 UNITS/ML, PEN SQ-INSULIN SCH (22:05)
[2017-02-22] MEDS: ENOXAPARIN 150 MG/ML SQ SCH (23:40)
[2017-02-23 03:21] VITALS: BP 132/67
[2017-02-23] MEDS: METOPROLOL TARTRATE 50 MG TABLET PO SCH ×2 (05:48→17:24)
[2017-02-23] MEDS: AMPICILLIN/SULBACTAM 3 GM in SODIUM CHLORIDE 0.9% 100 ML IV SCH ×3 (05:48→17:34)
[2017-02-23 06:21] LABS: HEMATOCRIT 37.3 % (39.2-51.8); WHITE BLOOD COUNT 7.4 x10^3/uL (3.4-10)
[2017-02-23 06:32] LABS: BLOOD UREA NITROGEN 14 mg/dL (7-18)
[2017-02-23 07:13] VITALS: BP 109/63
[2017-02-23] MEDS: POTASSIUM CHLORIDE 20 MEQ TAB.ER.PRT PO SCH (10:02)
[2017-02-23] MEDS: TAMSULOSIN 0.4 MG CAP.ER.24H PO SCH (10:02)
[2017-02-23] MEDS: FERROUS SULFATE 325 MG TABLET PO SCH ×2 (10:02→17:20)
[2017-02-23] MEDS: PRAMIPEXOLE 0.125MG TABLET PO SCH ×3 (10:03→20:46)
[2017-02-23] MEDS: PREGABALIN 150 MG CAPSULE PO SCH ×3 (10:03→20:47)
[2017-02-23] MEDS: FUROSEMIDE 40 MG TABLET PO SCH (10:03)
[2017-02-23] MEDS: OMEPRAZOLE 20 MG CAPSULE.DR PO SCH (10:03)
[2017-02-23] MEDS: GABAPENTIN 300 MG CAPSULE PO SCH ×3 (10:03→20:47)
[2017-02-23] MEDS: MULTIVITAMIN 1 TABLET PO SCH (10:03)
[2017-02-23] MEDS: LISINOPRIL 20 MG TABLET PO SCH ×2 (10:03→20:47)
[2017-02-23] MEDS: BACLOFEN 10 MG TABLET PO SCH ×3 (10:03→20:47)
[2017-02-23] MEDS: SODIUM CHLORIDE FLUSH 10ML SYR IVF SCH ×2 (10:04→20:46)
[2017-02-23] MEDS: OMEGA-3/FISH OIL CAPSULE PO SCH (10:04)
[2017-02-23 12:56] VITALS: BP 131/70
[2017-02-23] MEDS: ENOXAPARIN 150 MG/ML SQ SCH (14:09)
[2017-02-23] MEDS: WARFARIN 2 MG TABLET PO-COUM SCH (17:24)
[2017-02-23 20:40] VITALS: BP 145/72
[2017-02-23] MEDS: ATORVASTATIN 80 MG TABLET PO SCH (20:47)
[2017-02-23] MEDS: OXYcodone/APAP 10/325MG TABLET PO PRN (21:07)
[2017-02-23] MEDS: INSULIN DETEMIR 100 UNITS/ML, PEN SQ-INSULIN SCH (21:08)
[2017-02-24] MEDS: AMPICILLIN/SULBACTAM 3 GM in SODIUM CHLORIDE 0.9% 100 ML IV SCH ×5 (00:25→22:46)
[2017-02-24] MEDS: ENOXAPARIN 150 MG/ML SQ SCH ×2 (01:14→11:38)
[2017-02-24 02:36] VITALS: BP 148/73
[2017-02-24] MEDS: OXYcodone/APAP 10/325MG TABLET PO PRN ×4 (04:31→22:40)
[2017-02-24] MEDS: METOPROLOL TARTRATE 50 MG TABLET PO SCH ×2 (05:57→16:58)
[2017-02-24 06:44] VITALS: BP 187/76
[2017-02-24] MEDS: FUROSEMIDE 40 MG TABLET PO SCH (07:43)
[2017-02-24] MEDS: GABAPENTIN 300 MG CAPSULE PO SCH ×3 (07:43→21:37)
[2017-02-24] MEDS: MULTIVITAMIN 1 TABLET PO SCH (07:44)
[2017-02-24] MEDS: OMEPRAZOLE 20 MG CAPSULE.DR PO SCH (07:44)
[2017-02-24] MEDS: PRAMIPEXOLE 0.125MG TABLET PO SCH ×3 (07:44→22:07)
[2017-02-24] MEDS: BACLOFEN 10 MG TABLET PO SCH ×3 (07:44→21:37)
[2017-02-24] MEDS: OMEGA-3/FISH OIL CAPSULE PO SCH (07:44)
[2017-02-24] MEDS: LISINOPRIL 20 MG TABLET PO SCH ×2 (07:45→21:38)
[2017-02-24] MEDS: POTASSIUM CHLORIDE 20 MEQ TAB.ER.PRT PO SCH (07:46)
[2017-02-24] MEDS: TAMSULOSIN 0.4 MG CAP.ER.24H PO SCH (07:46)
[2017-02-24] MEDS: PREGABALIN 150 MG CAPSULE PO SCH ×3 (07:46→21:37)
[2017-02-24] MEDS: FERROUS SULFATE 325 MG TABLET PO SCH ×2 (07:47→16:56)
[2017-02-24] MEDS: SODIUM CHLORIDE FLUSH 10ML SYR IVF SCH ×2 (09:16→21:37)
[2017-02-24 13:37] VITALS: BP 161/73
[2017-02-24] MEDS ORDERED: SILVER NITRATE STICK TP ONE (18:00)
[2017-02-24 20:09] VITALS: BP 134/69
[2017-02-24] MEDS: ATORVASTATIN 80 MG TABLET PO SCH (21:38)
[2017-02-24] MEDS: INSULIN DETEMIR 100 UNITS/ML, PEN SQ-INSULIN SCH (22:07)
[2017-02-25 03:35] VITALS: BP 139/73
[2017-02-25] MEDS: OXYcodone/APAP 10/325MG TABLET PO PRN ×2 (04:13→21:29)
[2017-02-25] MEDS: AMPICILLIN/SULBACTAM 3 GM in SODIUM CHLORIDE 0.9% 100 ML IV SCH ×3 (05:18→16:55)
[2017-02-25] MEDS: METOPROLOL TARTRATE 50 MG TABLET PO SCH ×2 (05:19→16:54)
[2017-02-25 05:40] LABS: HEMATOCRIT 34.9 % (39.2-51.8); HEMOGLOBIN 11.2 g/dL (13.7-18.0)
[2017-02-25 08:40] VITALS: BP 169/77
[2017-02-25] MEDS: LISINOPRIL 20 MG TABLET PO SCH ×2 (09:00→21:07)
[2017-02-25] MEDS: TAMSULOSIN 0.4 MG CAP.ER.24H PO SCH (10:12)
[2017-02-25] MEDS: GABAPENTIN 300 MG CAPSULE PO SCH ×3 (10:13→21:07)
[2017-02-25] MEDS: PREGABALIN 150 MG CAPSULE PO SCH ×3 (10:13→21:07)
[2017-02-25] MEDS: POTASSIUM CHLORIDE 20 MEQ TAB.ER.PRT PO SCH (10:13)
[2017-02-25] MEDS: FERROUS SULFATE 325 MG TABLET PO SCH ×2 (10:13→16:54)
[2017-02-25] MEDS: MULTIVITAMIN 1 TABLET PO SCH (10:13)
[2017-02-25] MEDS: BACLOFEN 10 MG TABLET PO SCH ×3 (10:13→21:08)
[2017-02-25] MEDS: PRAMIPEXOLE 0.125MG TABLET PO SCH ×3 (10:13→21:07)
[2017-02-25] MEDS: FUROSEMIDE 40 MG TABLET PO SCH (10:13)
[2017-02-25] MEDS: SODIUM CHLORIDE FLUSH 10ML SYR IVF SCH ×2 (10:14→21:07)
[2017-02-25] MEDS: OMEGA-3/FISH OIL CAPSULE PO SCH (10:14)
[2017-02-25] MEDS: OMEPRAZOLE 20 MG CAPSULE.DR PO SCH (10:14)
[2017-02-25] MEDS ORDERED: FLUCONAZOLE 200 MG TABLET PO SCH (10:30)
[2017-02-25] MEDS ORDERED: DAPTOMYCIN 900 MG in SODIUM CHLORIDE 0.9% 100 ML IVPB SCH (10:30)
[2017-02-25 15:31] VITALS: BP 170/72
[2017-02-25] MEDS: ENOXAPARIN 150 MG/ML SQ SCH (16:54)
[2017-02-25 18:35] VITALS: BP 153/70
[2017-02-25] MEDS ORDERED: ATORVASTATIN 80 MG TABLET PO SCH (21:00)
[2017-02-25] MEDS: INSULIN DETEMIR 100 UNITS/ML, PEN SQ-INSULIN SCH (21:00)
[2017-02-26] MEDS: AMPICILLIN/SULBACTAM 3 GM in SODIUM CHLORIDE 0.9% 100 ML IV SCH ×3 (00:02→11:24)
[2017-02-26 01:39] VITALS: BP 158/73
[2017-02-26] MEDS: METOPROLOL TARTRATE 50 MG TABLET PO SCH (05:05)
[2017-02-26] MEDS: ENOXAPARIN 150 MG/ML SQ SCH (05:05)
[2017-02-26 05:50] LABS: HEMOGLOBIN 11.5 g/dL (13.7-18.0)
[2017-02-26 06:15] LABS: ASPARTATE AMINO TRANSFERASE 29 U/L (15-37); BLOOD UREA NITROGEN 12 mg/dL (7-18)
[2017-02-26 08:23] VITALS: BP 163/75
[2017-02-26] MEDS: FERROUS SULFATE 325 MG TABLET PO SCH (08:24)
[2017-02-26] MEDS: TAMSULOSIN 0.4 MG CAP.ER.24H PO SCH (08:25)
[2017-02-26] MEDS: POTASSIUM CHLORIDE 20 MEQ TAB.ER.PRT PO SCH (08:25)
[2017-02-26] MEDS: OMEGA-3/FISH OIL CAPSULE PO SCH (08:25)
[2017-02-26] MEDS: SODIUM CHLORIDE FLUSH 10ML SYR IVF SCH (08:25)
[2017-02-26] MEDS: MULTIVITAMIN 1 TABLET PO SCH (08:26)
[2017-02-26] MEDS: BACLOFEN 10 MG TABLET PO SCH (08:26)
[2017-02-26] MEDS: FUROSEMIDE 40 MG TABLET PO SCH (08:26)
[2017-02-26] MEDS: GABAPENTIN 300 MG CAPSULE PO SCH (08:26)
[2017-02-26] MEDS: OMEPRAZOLE 20 MG CAPSULE.DR PO SCH (08:26)
[2017-02-26] MEDS: PREGABALIN 150 MG CAPSULE PO SCH (08:26)
[2017-02-26] MEDS: LISINOPRIL 20 MG TABLET PO SCH (08:26)
[2017-02-26] MEDS: PRAMIPEXOLE 0.125MG TABLET PO SCH (08:26)
[2017-02-26] MEDS ORDERED: POTASSIUM CHLORIDE 20 MEQ TAB.ER.PRT PO ONE (10:30)
[2017-02-26] MEDS ORDERED: RIVA20TA PO (11:15)
[2017-02-26] MEDS ORDERED: FERR-36 PO (11:15)
[2017-02-26] MEDS ORDERED: METO50TA82 PO (11:15)
[2017-02-26] MEDS ORDERED: ACET325T14 PO (11:15)
[2017-02-26] MEDS ORDERED: HYDR-3343 PO (11:15)
[2017-02-26] MEDS ORDERED: AMPI3VIA IV (11:15)
[2017-02-26] MEDS ORDERED: DOCU-131 PO (11:15)
[2017-02-26] MEDS ORDERED: INSU100I28 SQ-INSULIN (11:15)
[2017-02-26] MEDS ORDERED: POLY17PO5 PO (11:15)
[2017-02-26] MEDS ORDERED: FURO40TA6 PO (11:15)
[2017-02-26] MEDS ORDERED: RIVA15TA PO (11:15)
[2017-02-26] MEDS ORDERED: ATOR-2 PO (11:15)
[2017-02-26] MEDS ORDERED: OXYC1TAB9 PO (11:15)
[2017-02-26] MEDS ORDERED: LISI-170 PO (11:15)
[2017-02-26] MEDS ORDERED: FURO20TA3 PO (11:15)
[2017-02-26] MEDS ORDERED: FLUCONAZOLE 200 MG TABLET PO SCH (12:30)
[2017-02-26] MEDS ORDERED: DAPTOMYCIN 900 MG in SODIUM CHLORIDE 0.9% 100 ML IVPB SCH (13:00)
[2017-02-26 14:23] VITALS: BP 164/71
== END 2017-02-26 16:29 | DRG 622 ==
LOC: ED 20:33 → SUATTDRO 20:41 → EDIP 20:45 → 3NE 02-06 16:57
PROVIDERS: ATTEND Hospitalist
PROC: 02HV33Z Insertion of Infusion Device into Superior Vena Cava, Percutaneous Approach (ICD-10-PCS; 2017-02-16)
PROC: B548ZZA Ultrasonography of Superior Vena Cava, Guidance (ICD-10-PCS; 2017-02-16)
PROC: 0JBR0ZZ Excision of Left Foot Subcutaneous Tissue and Fascia, Open Approach (ICD-10-PCS; principal; 2017-02-22 07:30)
DX: E11.621 Type 2 diabetes mellitus with foot ulcer (principal); E43 Unspecified severe protein-calorie malnutrition; M86.8X7 Other osteomyelitis, ankle and foot; N17.0 Acute kidney failure with tubular necrosis; D68.69 Other thrombophilia; E11.22 Type 2 diabetes mellitus with diabetic chronic kidney disease; R53.2 Functional quadriplegia; E11.40 Type 2 diabetes mellitus with diabetic neuropathy, unspecified; I50.32 Chronic diastolic (congestive) heart failure; I13.0 Hypertensive heart and chronic kidney disease with heart failure and stage 1 through stage 4 chronic kidney disease, or unspecified chronic kidney disease; L03.115 Cellulitis of right lower limb; L97.429 Non-pressure chronic ulcer of left heel and midfoot with unspecified severity; L03.116 Cellulitis of left lower limb; L03.316 Cellulitis of umbilicus; Z68.41 Body mass index [BMI] 40.0-44.9, adult; B95.61 Methicillin susceptible Staphylococcus aureus infection as the cause of diseases classified elsewhere; B95.2 Enterococcus as the cause of diseases classified elsewhere; B95.5 Unspecified streptococcus as the cause of diseases classified elsewhere; B96.89 Other specified bacterial agents as the cause of diseases classified elsewhere; E11.69 Type 2 diabetes mellitus with other specified complication; L97.529 Non-pressure chronic ulcer of other part of left foot with unspecified severity; M54.5 Low back pain; D50.9 Iron deficiency anemia, unspecified; D75.89 Other specified diseases of blood and blood-forming organs; E11.65 Type 2 diabetes mellitus with hyperglycemia; E66.01 Morbid (severe) obesity due to excess calories; E78.00 Pure hypercholesterolemia, unspecified; E78.5 Hyperlipidemia, unspecified; G89.29 Other chronic pain; I48.0 Paroxysmal atrial fibrillation; M19.90 Unspecified osteoarthritis, unspecified site; N18.9 Chronic kidney disease, unspecified; N40.0 Benign prostatic hyperplasia without lower urinary tract symptoms; Z79.01 Long term (current) use of anticoagulants; Z79.4 Long term (current) use of insulin; Z91.19 Patient's noncompliance with other medical treatment and regimen; Z99.3 Dependence on wheelchair; Z79.899 Other long term (current) drug therapy
CPT/HCPCS: 36415; 36569; 71010; 76937; 77001; 80048; 80053; 81003; 82040; 82550; 82962; 83036; 83540; 83550; 83735; 83880; 84100; 84484; 85014; 85018; 85025; 85610; 85651; 86140; 87015; 87040; 87070; 87075; 87077; 87102; 87106; 87116; 87176; 87186; 87205; 87206; 93005; 93922; 93926; 93970; 99285; A9585; J0295; J0712; J0878; J1650; J1815; J2405; J2543; J2704; J3010; J3370; C1751; J0330; J0360; J1200; J2765; J7040

== ENCOUNTER 2019-01-17 15:40 | Outpatient (CLI) | payer MEDICARE, BC | END 2019-01-17 23:59 | disposition home or self-care (01) | LOC: CVU 15:40 | PROVIDERS: ATTEND Internal Medicine Cardiovascular Disease | DX: R94.31 Abnormal electrocardiogram [ECG] [EKG] (principal) | CPT/HCPCS: 93306 ==